=== PATIENT | female | born 1955 | race Caucasian/White ===

== ENCOUNTER 2017-06-29 08:37 | Day surgery (SDC) | payer MEDICARE, SELFPAY ==
[~2017-06-29 08:37] MED LIST: Lidocaine 1% with EPINEPHrine 1:100,000 50 ML MDV ONE; Midazolam 1 MG/ML 2 ML SDV ONE; Propofol 200 MG/20 ML SDV ONE; Sodium Chloride 0.9% 10 ML ONE; Sodium Tetradecyl Sulfate 1% 20 MG/2 ML SDV ONE; fentaNYL 100 MCG/2 ML SDV ONE
[2017-06-29] MEDS ORDERED: Sodium Chloride 0.9% 1,000 ML IV SCH (09:00)
[2017-06-29] MEDS: Lidocaine 1% w/EPINEPHrine 50 ML, Sodium Bicarbonate 5 MEQ in Sodium Chloride 0.9% 950 ML INJECT SCH (09:58)
[2017-06-29] MEDS ORDERED: Sodium Chloride 0.9% 10 ML SDV ONE (10:08)
--- NOTE | 2017-06-29 10:58 | US ---
RFA Guidance-No Charge INDICATION: RFA [id number] FINDINGS: Ultrasound guidance provided.
[2017-06-29 12:55] VITALS: BP 122/64
--- NOTE | 2017-06-29 13:05 | OR ---
DATE OF PROCEDURE: 06/29/2017 PROCEDURE: 1. Radiofrequency ablation of the left greater saphenous vein. 2. Radiofrequency ablation of the right greater saphenous vein. 3. Sclerotherapy left leg, multiple. 4. Sclerotherapy right leg, multiple. 5. Compression wrapping, left leg ([id number]). 6. Compression wrapping, right leg ([id number]). COMPLICATIONS: None. SAP GRC SECURITY: None. ANESTHETIC: MAC. PREOPERATIVE DIAGNOSIS: Venous/varicose veins with inflammation and pain. POSTOPERATIVE DIAGNOSIS: Venous/varicose veins with inflammation and pain. PROCEDURE IN DETAIL: The patient was placed in supine position. The left GSV was identified first. This could be accessed at the bulky level of the ankle, but due to tortuosity, this could only be advanced approximately the mid calf. Short-segment RFA probe was then used. This was accessed in a standard fashion using a 21-gauge needle, then exchanged for a 35,000 wire, then exchanged for a 7-[place] sheath. The probe was introduced and tumescent fluid was injected in 1 cm jacket around this and verified a second and third time. Direct even pressure was held as the probe was deployed times a single round. The sheath and device were then removed and Dermabond was applied. The right leg was dressed in the same manner, same fashion, same technique, and the same sequence using the same equipment. This was also due to tortuosity along the access level of the ankle to mid calf. Sheath and device were then held and Dermabond was applied to both. The sclerotherapy was then performed of left and right legs using 0.33% sodium tetradecyl. There was 4 on the right and 4 on the left. This was drawn back to ensure intravascular injection only. No more than 2 mL injected in one location. Two-stage compression CoFlex wrapping was then applied in the left and right legs in a standard [id number] fashion. Compression layer followed by Co-flexing layer. The patient tolerated the procedure well. Leland Rogers MD /[id number]
== END 2017-06-29 12:05 | disposition home or self-care (01) ==
LOC: JP.SDS 08:37
PROVIDERS: ATTEND Surgery
DX: I83.811 Varicose veins of right lower extremity with pain (principal); I83.11 Varicose veins of right lower extremity with inflammation; I83.12 Varicose veins of left lower extremity with inflammation; I25.10 Atherosclerotic heart disease of native coronary artery without angina pectoris; Z95.810 Presence of automatic (implantable) cardiac defibrillator; J44.9 Chronic obstructive pulmonary disease, unspecified; G47.30 Sleep apnea, unspecified; E66.9 Obesity, unspecified; K21.9 Gastro-esophageal reflux disease without esophagitis; F41.9 Anxiety disorder, unspecified; F32.9 Major depressive disorder, single episode, unspecified; E53.8 Deficiency of other specified B group vitamins; Z98.84 Bariatric surgery status; Z90.49 Acquired absence of other specified parts of digestive tract; Z98.890 Other specified postprocedural states; Z68.30 Body mass index [BMI] 30.0-30.9, adult; Z88.8 Allergy status to other drugs, medicaments and biological substances; Z91.09 Other allergy status, other than to drugs and biological substances
CPT/HCPCS: 29581; 36471; 36475; C1888; J1642; J2250; J2704; J3010; J7040; J7050; J3490

== ENCOUNTER 2018-10-23 13:40 | Emergency (ER) | payer MEDICAID, MEDICARE ==
[2018-10-23 14:03] VITALS: BP 120/57
--- NOTE | 2018-10-23 14:20 | EDM.PDOC ---
ED HPI GENERAL MEDICAL PROBLEM - General Chief Complaint: Neck Problem Stated Complaint: NUMBNESS ON LEFT SIDE OF HEAD Time Seen by Provider: 10/23/18 14:12 Source of Information: Reports: Patient History Limitations: Reports: No Limitations - History of Present Illness INITIAL COMMENTS - FREE TEXT/NARRATIVE: 63-year-old female who has developed some numbness and tingling sensation on the posterior aspect of the left neck, as the day has gone on it has expanded up onto the parietal area of the scalp. When she was feeling the area she noticed a lump on the upper posterior left neck that has gotten somewhat tender as the day has gone on. She otherwise feels fine, no neurologic deficits or changes. She called the clinic to be seen and they sent her to the emergency room. Onset: Gradual Duration: Day(s): (Last 12-24 hours) Associated Symptoms: Reports: No Other Symptoms - Related Data Allergies Allergy/AdvReac Type Severity Reaction Status Date / Time melatonin Allergy Unknown Tachycardia Verified 06/29/17 09:09 adhesive tape Allergy Rash Verified 06/29/17 09:09 hydromorphone [From Dilaudid] Allergy Itching Verified 06/29/17 09:09 oxycodone [From Tylox] Allergy Itching Verified 06/29/17 09:09 pregabalin [From Lyrica] Allergy Seizure Verified 06/29/17 09:09 pneumococcal vaccine AdvReac Unknown Nausea and Verified 06/29/17 09:09 [Pneumococcal Vaccine] Vomiting fentanyl AdvReac Itching Verified 06/29/17 09:09 hydromorphone HCl AdvReac Itching Verified 06/29/17 09:09 [From Dilaudid] Home Meds: Home Meds Budesonide/Formoterol [Symbicort 160-4.5 MCG] 2 puff INH BID PRN 07/15/13 [ History] Hydrocortisone [Hydrocortisone 1% Crm] 1 lotion TOP BID PRN 07/15/13 [History] Vitamin B Complex [B Complex] 1 tab PO DAILY 07/15/13 [History] Nitroglycerin [Nitrostat] 0.4 mg SL ASDIRECTED PRN 01/12/14 [History] Metoprolol Tartrate [Lopressor] 25 mg PO BID 02/10/14 [History] Polyethylene Glycol 3350 [MiraLAX] 1 dose PO [id number] PRN 09/15/14 [History] lamoTRIgine [Lamotrigine] 200 mg PO ACBREAKFAST 02/25/16 [History] Calcium Citrate/Vitamin D3 [Calcium Citrate +Vit D3 Tablet] 1 tab PO DAILY 04/29 [History] Cholecalciferol (Vitamin D3) [D3-2000] 10,000 units PO DAILY 04/29/16 [History] Cyanocobalamin/Folic Acid [B-12 1,000 Mcg Sub Tablet] 1 tab PO DAILY 04/29/16 [ History] Multivitamin with Minerals [Multiple Vitamin] 1 tab PO DAILY 04/29/16 [History] atorvaSTATin [Lipitor] 40 mg PO DAILY 04/29/16 [History] Ibuprofen 400 mg PO ASDIRECTED 09/12/16 [History] Pramipexole Di-HCl [Mirapex] 1 mg PO QPM 09/12/16 [History] levETIRAcetam [Keppra] 750 mg PO BID 09/12/16 [History] PARoxetine [Paxil] 20 mg PO DAILY 10/05/16 [History] Albuterol [IJD: Ventolin HFA] 2 puff INH Q4HR PRN 06/27/17 [History] Naproxen 500 mg PO BID PRN 06/27/17 [History] tiZANidine [Zanaflex] 4 mg PO BEDTIME 06/27/17 [History] Acarbose 25 mg PO TID 10/23/18 [History] Acetaminophen/HYDROcodone [[place] 325-5 MG] 1 tab PO QID PRN 10/23/18 [History] Gabapentin [Neurontin] 600 mg PO BID 10/23/18 [History] Linaclotide [Linzess] 145 mg PO DAILY 10/23/18 [History] Liraglutide [Victoza] 0.6 mg PO DAILY 10/23/18 [History] Magnesium Oxide 400 mg PO DAILY 10/23/18 [History] Potassium Chloride 10 meq PO BID 10/23/18 [History] Torsemide [Demadex] 20 mg PO BID 10/23/18 [History] Past Medical History HEENT History: Reports: Allergic Rhinitis, Cataract, Impaired Vision, Otitis Media Cardiovascular History: Reports: Automatic Implantable Cardioverter Defibrillators, Blood Clots/VTE/DVT, Bypass, CAD, Heart Failure, Heart Murmur, [place], Pacemaker, Prior Cardiac Arrest, Stents Respiratory History: Reports: Asthma, Bronchitis, Recurrent, COPD, Sleep Apnea Gastrointestinal History: Reports: Bowel Obstruction, Chronic Constipation, Colon Polyp, GERD, Hemorrhoids, Hiatal Hernia Genitourinary History: Reports: UTI, 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: Musculoskeletal History: Reports: Arthritis, Back Pain, Chronic, Fracture, RA Neurological History: Reports: CVA, Seizure Psychiatric History: Reports: Anxiety, Depression, Mood Swings Endocrine/Metabolic History: Reports: Obesity/BMI 30+, Osteopenia, Other (See Below) Other Endocrine/Metabolic History: hypoglycemia Hematologic History: Reports: B12 Deficiency, Blood Transfusion(s), Folic Acid Dermatologic History: Reports: Eczema - Infectious Disease History Infectious Disease History: Reports: Chicken Pox, Measles, Mumps - Past Surgical History HEENT Surgical History: Reports: Naso-Sinus Surgery, Tonsillectomy Cardiovascular Surgical History: Reports: Coronary Artery Bypass, Coronary Artery Stent, Pacer Respiratory Surgical History: Reports: None GI Surgical History: Reports: Appendectomy, Bariatric Procedure, Cholecystectomy , Colonoscopy, EGD, Gabriel Fundoplication, Small Bowel Female Surgical History: Reports: Section Endocrine Surgical History: Reports: None Neurological Surgical History: Reports: Lumbar Spine Musculoskeletal Surgical History: Reports: Carpal Tunnel, Other (See Below) Other Musculoskeletal Surgeries/Procedures:: Elbow surg Social & Family History - Tobacco Use Smoking Status *Q: Light Tobacco Smoker Years of Tobacco use: 40 Packs/Tins Daily: 0.1 - Caffeine Use Caffeine Use: Reports: Soda - Recreational Drug Use Recreational Drug Use: No ED ROS GENERAL - Review of Systems Review Of Systems: See Below Constitutional: Denies: Fever, Chills HEENT: Reports: No Symptoms Respiratory: Denies: Shortness of Breath, Cough Cardiovascular: Denies: Chest Pain GI/Abdominal: Denies: Nausea, Vomiting Skin: Denies: Bruising Neurological: Reports: Paresthesia (Left scalp and left posterior neck). Denies : Headache Psychiatric: Reports: No Symptoms Free Text/Narrative/Comment: Claims she is "hypoglycemic". ED EXAM, GENERAL - Physical Exam Exam: See Below Exam Limited By: No Limitations General Appearance: Alert, No Apparent Distress Eye Exam: Bilateral Eye: EOMI, Normal Inspection Head: Atraumatic, Other (Patient has a 2 x 2 raised somewhat erythematous slightly fluctuant subcutaneous mass or cyst above the hairline on the scalp on the left which is tender to palpation) Neck: Supple Respiratory/Chest: No Respiratory Distress Neurological: Alert, Oriented, No Motor/Sensory Deficits Course - Vital Signs Last Recorded V/S: Last Vital Signs Temp 95.1 F L 10/23/18 14:06 Pulse 61 10/23/18 14:06 Resp 16 10/23/18 14:06 BP 120/57 L 10/23/18 14:06 Pulse Ox 98 10/23/18 14:06 - Re-Assessments/Exams Free Text/Narrative Re-Assessment/Exam: 10/23/18 14:24 Patient has developed a sebaceous cyst which apparently has become inflamed over the past day, likely irritating occipital nerve. It's not quite large enough to incise at this point, she'll be placed on Augmentin twice daily for the next 6 days, warm compresses, and recheck in 3 days if not improving or anytime sooner if worsening despite medication. Departure - Departure Time of Disposition: 14:34 Disposition: Home, Self-Care 01 Condition: Good Clinical Impression: Infected sebaceous cyst of skin - Discharge Information Instructions: Cellulitis, Adult, [id number] Referrals: PCP,None [Primary Care Provider] - Forms: ED Department Discharge Care Plan Goals: Take Augmentin twice daily for 6 days with food as prescribed, occasional warm compresses to the area may help. Return anytime if worsening despite treatment, or consider rechecking on Monday if not improving satisfactorily. Do not be alarmed if the spot drains as it heals.
== END 2018-10-23 14:34 | disposition home or self-care (01) ==
LOC: JP.ED 13:40
DX: L72.3 Sebaceous cyst (principal); F17.210 Nicotine dependence, cigarettes, uncomplicated; I50.9 Heart failure, unspecified; F41.9 Anxiety disorder, unspecified; F32.9 Major depressive disorder, single episode, unspecified; Z86.73 Personal history of transient ischemic attack (TIA), and cerebral infarction without residual deficits; Z79.899 Other long term (current) drug therapy; Z91.09 Other allergy status, other than to drugs and biological substances; Z88.6 Allergy status to analgesic agent; Z88.7 Allergy status to serum and vaccine
CPT/HCPCS: 99283

== ENCOUNTER 2019-02-05 12:43 | Emergency (ER) | payer MEDICARE ==
--- NOTE | 2019-02-05 13:25 | EDM.PDOC ---
ED HPI GENERAL MEDICAL PROBLEM - General Chief Complaint: Neuro Symptoms/Deficits Stated Complaint: NUMBNESS IN LEFT HAND AND ARM Time Seen by Provider: 02/05/19 13:10 Source of Information: Reports: Patient, Old Records History Limitations: Reports: No Limitations - History of Present Illness INITIAL COMMENTS - FREE TEXT/NARRATIVE: 63 yo female with a pacemaker and a pHx of CAD/FL and CVA and L ulnar nerve entrapment presents with R lateral hand numbness since this morning. Sx's go from her 5th finger to her elbow. No weakness in that hand. Onset: Today Onset Date: 02/05/19 Onset Time: 07:00 Duration: Hour(s):, Constant Location: Reports: Upper Extremity, Right Quality: Reports: Other (numbness) Severity: Moderate Improves with: Reports: None Worsens with: Reports: None Context: Reports: Other (see HPI) Associated Symptoms: Reports: No Other Symptoms Treatments PLOW HOLDER: Reports: Other (see below) (none) Right Arm Pain Score (Numeric/FACES): 2 - Related Data Allergies Allergy/AdvReac Type Severity Reaction Status Date / Time melatonin Allergy Unknown Tachycardia Verified 02/05/19 13:28 adhesive tape Allergy Rash Verified 02/05/19 13:28 hydromorphone [From Dilaudid] Allergy Itching Verified 02/05/19 13:28 oxycodone [From Tylox] Allergy Itching Verified 02/05/19 13:28 pregabalin [From Lyrica] Allergy Seizure Verified 02/05/19 13:28 pneumococcal vaccine AdvReac Unknown Nausea and Verified 02/05/19 13:28 [Pneumococcal Vaccine] Vomiting fentanyl AdvReac Itching Verified 02/05/19 13:28 hydromorphone HCl AdvReac Itching Verified 02/05/19 13:28 [From Dilaudid] Home Meds: Home Meds Budesonide/Formoterol [Symbicort 160-4.5 MCG] 2 puff INH BID PRN 07/15/13 [ History] Hydrocortisone [Hydrocortisone 1% Crm] 1 lotion TOP BID PRN 07/15/13 [History] Vitamin B Complex [B Complex] 1 tab PO DAILY 07/15/13 [History] Nitroglycerin [Nitrostat] 0.4 mg SL ASDIRECTED PRN 01/12/14 [History] Metoprolol Tartrate [Lopressor] 25 mg PO BID 02/10/14 [History] Polyethylene Glycol 3350 [MiraLAX] 1 dose PO [id number] PRN 09/15/14 [History] lamoTRIgine [Lamotrigine] 200 mg PO ACBREAKFAST 02/25/16 [History] Calcium Citrate/Vitamin D3 [Calcium Citrate +Vit D3 Tablet] 1 tab PO DAILY 04/29 [History] Cholecalciferol (Vitamin D3) [D3-2000] 10,000 units PO DAILY 04/29/16 [History] Cyanocobalamin/Folic Acid [B-12 1,000 Mcg Sub Tablet] 1 tab PO DAILY 04/29/16 [ History] Multivitamin with Minerals [Multiple Vitamin] 1 tab PO DAILY 04/29/16 [History] atorvaSTATin [Lipitor] 40 mg PO DAILY 04/29/16 [History] Ibuprofen 400 mg PO ASDIRECTED 09/12/16 [History] Pramipexole Di-HCl [Mirapex] 1 mg PO QPM 09/12/16 [History] levETIRAcetam [Keppra] 750 mg PO BID 09/12/16 [History] PARoxetine [Paxil] 20 mg PO DAILY 10/05/16 [History] Albuterol [IJD: Ventolin HFA] 2 puff INH Q4HR PRN 06/27/17 [History] Naproxen 500 mg PO BID PRN 06/27/17 [History] tiZANidine [Zanaflex] 4 mg PO BEDTIME 06/27/17 [History] Acarbose 25 mg PO TID 10/23/18 [History] Acetaminophen/HYDROcodone [[place] 325-5 MG] 1 tab PO QID PRN 10/23/18 [History] Gabapentin [Neurontin] 600 mg PO BID 10/23/18 [History] Linaclotide [Linzess] 145 mg PO DAILY 10/23/18 [History] Liraglutide [Victoza] 0.6 mg PO DAILY 10/23/18 [History] Magnesium Oxide 400 mg PO DAILY 10/23/18 [History] Potassium Chloride 10 meq PO BID 10/23/18 [History] Torsemide [Demadex] 20 mg PO BID 10/23/18 [History] Pramipexole [Mirapex] 0.5 mg PO BEDTIME 02/05/19 [History] Past Medical History HEENT History: Reports: Allergic Rhinitis, Cataract, Impaired Vision, Otitis Media Cardiovascular History: Reports: Automatic Implantable Cardioverter Defibrillators, Blood Clots/VTE/DVT, Bypass, CAD, Heart Failure, Heart Murmur, [place], Pacemaker, Prior Cardiac Arrest, Stents Respiratory History: Reports: Asthma, Bronchitis, Recurrent, COPD, Sleep Apnea Gastrointestinal History: Reports: Bowel Obstruction, Chronic Constipation, Colon Polyp, GERD, Hemorrhoids, Hiatal Hernia Genitourinary History: Reports: UTI, 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: Musculoskeletal History: Reports: Arthritis, Back Pain, Chronic, Fracture, RA Neurological History: Reports: CVA, Seizure Psychiatric History: Reports: Anxiety, Depression, Mood Swings Endocrine/Metabolic History: Reports: Obesity/BMI 30+, Osteopenia, Other (See Below) Other Endocrine/Metabolic History: hypoglycemia Hematologic History: Reports: B12 Deficiency, Blood Transfusion(s), Folic Acid Dermatologic History: Reports: Eczema - Infectious Disease History Infectious Disease History: Reports: Chicken Pox, Measles, Mumps - Past Surgical History HEENT Surgical History: Reports: Naso-Sinus Surgery, Tonsillectomy Cardiovascular Surgical History: Reports: Coronary Artery Bypass, Coronary Artery Stent, Pacer Respiratory Surgical History: Reports: None GI Surgical History: Reports: Appendectomy, Bariatric Procedure, Cholecystectomy , Colonoscopy, EGD, Gabriel Fundoplication, Small Bowel Female Surgical History: Reports: Section Endocrine Surgical History: Reports: None Neurological Surgical History: Reports: Lumbar Spine Musculoskeletal Surgical History: Reports: Carpal Tunnel, Other (See Below) Other Musculoskeletal Surgeries/Procedures:: Elbow surg Social & Family History - Caffeine Use Caffeine Use: Reports: Soda ED ROS GENERAL - Review of Systems Review Of Systems: See Below Constitutional: Reports: No Symptoms HEENT: Reports: No Symptoms Respiratory: Reports: No Symptoms Cardiovascular: Reports: No Symptoms Endocrine: Reports: No Symptoms GI/Abdominal: Reports: No Symptoms : Reports: No Symptoms Musculoskeletal: Reports: No Symptoms Skin: Reports: No Symptoms Neurological: Reports: Numbness (R lateral hand and forearm). Denies: Weakness , Change in Speech, Gait Disturbance Psychiatric: Reports: No Symptoms ED EXAM, NEURO - Physical Exam Exam: See Below Exam Limited By: No Limitations General Appearance: Alert, WD/WN, No Apparent Distress Eye Exam: Bilateral Eye: Normal Inspection Ears: Normal External Exam, Normal Canal, Hearing Grossly Normal, Normal TMs Nose: Normal Inspection, No Blood Throat/Mouth: Normal Inspection, Normal Lips, Normal Oropharynx, Normal Voice, No Airway Compromise Head Exam: Atraumatic, Normocephalic Neck: Normal Inspection Respiratory/Chest: No Respiratory Distress, Lungs Clear, Normal Breath Sounds, No Accessory Muscle Use Cardiovascular: Regular Rate, Rhythm, No Edema GI/Abdominal: Normal Bowel Sounds, Soft, Non-Tender, No Distention Neurological: Alert, Normal Mood/Affect, Normal Dorsiflexion, CN II-XII Intact, Normal Plantar Flexion, Oriented x 3, Other (subjective numbness limited to the ulnar nerve distribution RUE.) DTR: 1+: Bicep (R), Bicep (L), Tricep (R), Tricep (L), Patella (R), Patella (L) , Achilles (R), Achilles (L) Back Exam: Normal Inspection Extremities: Normal Inspection, Normal Range of Motion, Non-Tender, No Pedal Edema Psychiatric: Normal Affect, Normal Mood Skin Exam: Warm, Dry, Intact, Normal Color, No Rash Course - Vital Signs Last Recorded V/S: Last Vital Signs Temp 36.1 C 02/05/19 13:35 Pulse 85 02/05/19 13:35 Resp 15 02/05/19 13:35 BP 105/45 L 02/05/19 13:35 Pulse Ox 94 L 02/05/19 13:35 - Orders/Labs/Meds Labs: Laboratory Tests 02/05/19 02/05/19 Range/Units 13:19 13:19 WBC 6.5 (4.5-11.0) K/uL RBC 4.28 (3.30-5.50) M/uL Hgb 13.1 D (12.0-15.0) g/dL Hct 40.0 (36.0-48.0) % MCV 94 (80-98) fL MCH 31 (27-31) pg MCHC 33 (32-36) % Plt Count 124 L (150-400) K/uL Sodium 140 (140-148) mmol/L Potassium 4.0 (3.6-5.2) mmol/L Chloride 102 (100-108) mmol/L Carbon Dioxide 31 (21-32) mmol/L Anion Gap 7.2 (5.0-14.0) mmol/L BUN 9 (7-18) mg/dL Creatinine 0.7 (0.6-1.0) mg/dL Est Cr Clr Drug Dosing 63.69 mL/min Estimated GFR (MDRD) > 60 (>60) Glucose 90 (74-106) mg/dL Calcium 9.4 D (8.5-10.1) mg/dL Troponin I < 0.017 (0.000-0.056) ng/mL - Radiology Interpretation Free Text/Narrative:: Head CT scan without contrast-neg Departure - Departure Time of Disposition: 14:54 Disposition: Home, Self-Care 01 Condition: Fair Clinical Impression: Numbness of upper extremity Ulnar nerve entrapment Qualifiers: Laterality: right Qualified Code(s): G56.21 - Lesion of ulnar nerve, right upper limb - Discharge Information *PRESCRIPTION DRUG MONITORING PROGRAM REVIEWED*: No *COPY OF PRESCRIPTION DRUG MONITORING REPORT IN PATIENT [place]: No Referrals: Rodo Jackson NP [Primary Care Provider] - Forms: ED Department Discharge Additional Instructions: See your doctor for EMG testing or referral. Return here as needed.
--- NOTE | 2019-02-05 14:46 | CRLCT ---
INDICATION: Right lateral hand numbness TECHNIQUE: CT head without contrast. COMPARISON: 08/01/2018 FINDINGS: CSF spaces: Within normal limits for age. Brain parenchyma: The senior-white differentiation is normal. No sign of mass, hemorrhage, or midline shift. Skull base and calvarium: The visualized paranasal sinuses and mastoid air cells demonstrate no acute or significant findings. The visualized orbits are grossly unremarkable. No skull fractures. IMPRESSION: Unremarkable noncontrast head CT. Dictated by Darrius Orellana MD @ 02/05/2019 2:43:21 PM Please note that all CT scans at this facility use dose modulation, iterative reconstruction, and/or weight-based dosing when appropriate to reduce radiation dose to as low as reasonably achievable. Dictated by: Darrius Orlelana MD @ 02/05/2019 14:43:27 (Electronically Signed)
[2019-02-05 15:08] VITALS: BP 112/50
== END 2019-02-05 15:00 | disposition home or self-care (01) ==
LOC: JP.ED 12:43
DX: G56.21 Lesion of ulnar nerve, right upper limb (principal); I50.9 Heart failure, unspecified; I25.10 Atherosclerotic heart disease of native coronary artery without angina pectoris; I25.2 Old myocardial infarction; Z86.73 Personal history of transient ischemic attack (TIA), and cerebral infarction without residual deficits; M19.90 Unspecified osteoarthritis, unspecified site; E66.9 Obesity, unspecified; Z95.1 Presence of aortocoronary bypass graft; Z98.890 Other specified postprocedural states; Z98.84 Bariatric surgery status; Z88.7 Allergy status to serum and vaccine; Z88.5 Allergy status to narcotic agent; Z91.09 Other allergy status, other than to drugs and biological substances; Z95.5 Presence of coronary angioplasty implant and graft; Z95.0 Presence of cardiac pacemaker
CPT/HCPCS: 36415; 70450; 80048; 84484; 85027; 99284-25

== ENCOUNTER 2020-06-11 10:53 | Emergency (ER) | payer MEDICARE ==
[2020-06-11 11:26] VITALS: BP 123/68; PULSE 64
[2020-06-11] MEDS ORDERED: Ketorolac 60 MG/2 ML SDV IM ONE (12:00)
--- NOTE | 2020-06-11 12:07 | EDM.PDOC ---
<Laquita Amaral M - Last Filed: 06/11/20 12:15> ED HPI GENERAL MEDICAL PROBLEM - General Chief Complaint: Neck Problem Stated Complaint: POSSIBLE GRAND MALL SIEZURE Time Seen by Provider: 06/11/20 11:36 Source of Information: Reports: Patient, RN, RN Notes Reviewed History Limitations: Reports: No Limitations - History of Present Illness INITIAL COMMENTS - FREE TEXT/NARRATIVE: Pt here post grand mal seizure on Monday evening. Pt indicates it was unwitnessed. First seizure in 3 years. Pt was sitting in recliner with legs elevated and then was disoriented when she realized she may have had a seizure. approximately 15 minutes later, the pt indicates the pain in her posterior neck was hurting. Pt took hydrocodone on three different occasion yesterday with no relief. Pt purchased a C collar and continues to c/o pain even with talking. Strength 5/5 in all extremities. Limited ROM in neck and tops of shoulders. Pt winces in pain without even touching the neck area. The pt did not loose continence with the seizure. Onset Date: 06/09/20 Duration: Constant, Getting Worse Location: Reports: Neck Quality: Reports: Ache Severity: Moderate Improves with: Reports: None Associated Symptoms: Reports: No Other Symptoms - Related Data Allergies Allergy/AdvReac Type Severity Reaction Status Date / Time melatonin Allergy Unknown Tachycardia Verified 02/05/19 13:28 adhesive tape Allergy Rash Verified 02/05/19 13:28 hydromorphone [From Dilaudid] Allergy Itching Verified 02/05/19 13:28 oxycodone [From Tylox] Allergy Itching Verified 02/05/19 13:28 pregabalin [From Lyrica] Allergy Seizure Verified 02/05/19 13:28 pneumococcal vaccine AdvReac Unknown Nausea and Verified 02/05/19 13:28 [Pneumococcal Vaccine] Vomiting fentanyl AdvReac Itching Verified 02/05/19 13:28 hydromorphone HCl AdvReac Itching Verified 02/05/19 13:28 [From Dilaudid] Home Meds: Home Meds Budesonide/Formoterol [Symbicort 160-4.5 MCG] 2 puff INH BID PRN 07/15/13 [History] Hydrocortisone [Hydrocortisone 1% Crm] 1 lotion TOP BID PRN 07/15/13 [History] Vitamin B Complex [B Complex] 1 tab PO DAILY 07/15/13 [History] Nitroglycerin [Nitrostat] 0.4 mg SL ASDIRECTED PRN 01/12/14 [History] Metoprolol Tartrate [Lopressor] 25 mg PO BID 02/10/14 [History] polyethylene glycoL 3350 [MiraLAX] 1 dose PO [id number] PRN 09/15/14 [History] lamoTRIgine [Lamotrigine] 200 mg PO ACBREAKFAST 02/25/16 [History] Calcium Citrate/Vitamin D3 [Calcium Citrate +Vit D3 Tablet] 1 tab PO DAILY 04/29/16 [History] Cholecalciferol (Vitamin D3) [D3-2000] 10,000 units PO DAILY 04/29/16 [History] Cyanocobalamin/Folic Acid [B-12 1,000 Mcg Sub Tablet] 1 tab PO DAILY 04/29/16 [History] Multivitamin with Minerals [Multiple Vitamin] 1 tab PO DAILY 04/29/16 [History] atorvaSTATin [Lipitor] 40 mg PO DAILY 04/29/16 [History] Ibuprofen 400 mg PO ASDIRECTED 09/12/16 [History] Pramipexole Di-HCl [Mirapex] 1 mg PO QPM 09/12/16 [History] levETIRAcetam [Keppra] 750 mg PO BID 09/12/16 [History] PARoxetine [Paxil] 20 mg PO DAILY 10/05/16 [History] Albuterol [IJD: Ventolin HFA] 2 puff INH Q4HR PRN 06/27/17 [History] Naproxen 500 mg PO BID PRN 06/27/17 [History] tiZANidine [Zanaflex] 4 mg PO BEDTIME 06/27/17 [History] Acarbose 25 mg PO TID 10/23/18 [History] Acetaminophen/HYDROcodone [[place] 325-5 MG] 1 tab PO QID PRN 10/23/18 [History] Gabapentin [Neurontin] 600 mg PO BID 10/23/18 [History] Linaclotide [Linzess] 145 mg PO DAILY 10/23/18 [History] Liraglutide [Victoza] 0.6 mg PO DAILY 10/23/18 [History] Magnesium Oxide 400 mg PO DAILY 10/23/18 [History] Potassium Chloride 10 meq PO BID 10/23/18 [History] Torsemide [Demadex] 20 mg PO BID 10/23/18 [History] Pramipexole [Mirapex] 0.5 mg PO BEDTIME 02/05/19 [History] Past Medical History HEENT History: Reports: Allergic Rhinitis, Cataract, Impaired Vision, Otitis Media Cardiovascular History: Reports: Automatic Implantable Cardioverter Defibrillators, Blood Clots/VTE/DVT, Bypass, CAD, Heart Failure, Heart Murmur, [place], Pacemaker, Prior Cardiac Arrest, Stents Respiratory History: Reports: Asthma, Bronchitis, Recurrent, COPD, Sleep Apnea Gastrointestinal History: Reports: Bowel Obstruction, Chronic Constipation, Colon Polyp, GERD, Hemorrhoids, Hiatal Hernia Genitourinary History: Reports: UTI, Recurrent 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: Musculoskeletal History: Reports: Arthritis, Back Pain, Chronic, Fracture, RA Other Musculoskeletal History: back surgery with paulette along spine Neurological History: Reports: CVA, Seizure Psychiatric History: Reports: Anxiety, Depression, Mood Swings Endocrine/Metabolic History: Reports: Obesity/BMI 30+, Osteopenia, Other (See Below) Other Endocrine/Metabolic History: hypoglycemia Hematologic History: Reports: B12 Deficiency, Blood Transfusion(s), Folic Acid Dermatologic History: Reports: Eczema - Infectious Disease History Infectious Disease History: Reports: Chicken Pox, Measles, Mumps - Past Surgical History HEENT Surgical History: Reports: Naso-Sinus Surgery, Tonsillectomy Cardiovascular Surgical History: Reports: Coronary Artery Bypass, Coronary Artery Stent, Pacer Respiratory Surgical History: Reports: None GI Surgical History: Reports: Appendectomy, Bariatric Procedure, Cholecystectomy, Colonoscopy, EGD, Gabriel Fundoplication, Small Bowel Female Surgical History: Reports: Section Endocrine Surgical History: Reports: None Neurological Surgical History: Reports: Lumbar Spine Musculoskeletal Surgical History: Reports: Carpal Tunnel, Other (See Below) Other Musculoskeletal Surgeries/Procedures:: Elbow surg Social & Family History - Caffeine Use Caffeine Use: Reports: Soda - Recreational Drug Use Recreational Drug Use: No ED ROS GENERAL - Review of Systems Review Of Systems: See Below Constitutional: Reports: No Symptoms HEENT: Reports: Other (Neck pain) Respiratory: Reports: No Symptoms Cardiovascular: Reports: No Symptoms Endocrine: Reports: No Symptoms GI/Abdominal: Reports: No Symptoms : Reports: No Symptoms Musculoskeletal: Reports: Neck Pain (Post gran mal seizure) Skin: Reports: No Symptoms Neurological: Reports: No Symptoms Psychiatric: Reports: No Symptoms Hematologic/Lymphatic: Reports: No Symptoms Immunologic: Reports: No Symptoms ED EXAM, UPPER BACK/NECK PAIN - Physical Exam Exam: See Below Exam Limited By: No Limitations General Appearance: Alert, WD/WN, Mild Distress Eye Exam: Bilateral Eye: Normal Inspection, PERRL Head Exam: Normocephalic Neck Exam: Limited Range of Motion, Painful Range of Motion, Stiff Neck, Tenderness Cardiovascular/Respiratory: Regular Rate, Rhythm (Female) Exam: Deferred Rectal (Female) Exam: Deferred Back Exam: Normal Inspection Extremities: Normal Range of Motion Neurologic: Alert, Normal Mood/Affect Psychiatric: Normal Affect Skin Exam: Normal Color, Warm/Dry Departure - Departure Time of Disposition: 12:15 Disposition: Left Without Being Seen 07 Condition: Good Clinical Impression: Neck muscle strain Qualifiers: Encounter type: initial encounter Qualified Code(s): S16.1XXA - Strain of muscle, fascia and tendon at neck level, initial encounter - Discharge Information *PRESCRIPTION DRUG MONITORING PROGRAM REVIEWED*: Not Applicable *COPY OF PRESCRIPTION DRUG MONITORING REPORT IN PATIENT CHIRAG: Not Applicable Instructions: Cervical Sprain, [id number], Pain Medicine Instructions, [id number] Referrals: Rodo Jackson NP [Primary Care Provider] - Forms: ED Department Discharge Care Plan Goals: Please take your Toradol as prescribed. DO NOT TAKE ANY IBUPROFEN, MOTRIN, OR ALEVE WHILE TAKING TORADOL. You may take Hydrocodone that you have at home with the Toradol. You may trry ice and heat to help with pain relief. If the condition worsens pleas come back to the ER or follow up with your provider. Sepsis Event Note (ED) - Evaluation Sepsis Screening Result: No Definite Risk - Problem List Review Problem List Initiated/Reviewed/Updated: Yes - Assessment/Plan Plan: Please take your Toradol as prescribed. DO NOT TAKE ANY IBUPROFEN, MOTRIN, OR ALEVE WHILE TAKING TORADOL. You may take Hydrocodone that you have at home with the Toradol. You may trry ice and heat to help with pain relief. If the condition worsens pleas come back to the ER or follow up with your provider. <Tom Herrera - Last Filed: 06/11/20 12:54> Course - Vital Signs Last Recorded V/S: Last Vital Signs Temp 98.2 F 06/11/20 11:31 Pulse 64 06/11/20 11:31 Resp 16 06/11/20 11:31 BP 123/68 06/11/20 11:31 Pulse Ox 97 06/11/20 11:31 - Orders/Labs/Meds Meds: Medications Discontinued Medications Generic Name Dose Route Start Last Admin Trade Name Tom PRN Reason Stop Dose Admin Ketorolac Tromethamine 60 mg 06/11/20 12:00 06/11/20 12:09 Toradol IM 06/11/20 12:01 60 mg ONETIME ONE Administration - Re-Assessments/Exams Free Text/Narrative Re-Assessment/Exam: 06/11/20 12:27 20 notes after the Toradol injection, patient had just a slight amount of improvement. She will be discharged with 10 additional doses to take 3 times a day and she can continue her hydrocodone for extra pain control. She is also going to consider increasing her Zanaflex to every 4-6 hours instead of once daily. Recheck on Monday or Monday if not improving, physical therapy or further evaluation may be necessary. Departure - Departure Time of Disposition: 12:36 Sepsis Event Note (ED) - Focused Exam Vital Signs: Vital Signs Temp Pulse Resp BP Pulse Ox 06/11/20 11:31 98.2 F 64 16 123/68 97 06/11/20 11:25 98.2 F 64 16 123/68 97
== END 2020-06-11 12:36 | disposition home or self-care (01) ==
LOC: JP.ED 10:53
DX: S16.1XXA Strain of muscle, fascia and tendon at neck level, initial encounter (principal); G40.409 Other generalized epilepsy and epileptic syndromes, not intractable, without status epilepticus; I50.9 Heart failure, unspecified; I25.10 Atherosclerotic heart disease of native coronary artery without angina pectoris; I25.2 Old myocardial infarction; J44.9 Chronic obstructive pulmonary disease, unspecified; E66.9 Obesity, unspecified; F41.9 Anxiety disorder, unspecified; F32.9 Major depressive disorder, single episode, unspecified; K21.9 Gastro-esophageal reflux disease without esophagitis; Z88.8 Allergy status to other drugs, medicaments and biological substances; Z91.09 Other allergy status, other than to drugs and biological substances; Z88.5 Allergy status to narcotic agent; Z88.7 Allergy status to serum and vaccine; Z88.4 Allergy status to anesthetic agent; Z95.5 Presence of coronary angioplasty implant and graft; Z90.49 Acquired absence of other specified parts of digestive tract; Z86.73 Personal history of transient ischemic attack (TIA), and cerebral infarction without residual deficits; Z79.899 Other long term (current) drug therapy; X58.XXXA Exposure to other specified factors, initial encounter
CPT/HCPCS: 96372; 99283; J1885

== ENCOUNTER 2020-11-27 16:09 | Emergency (ER) | payer MEDICARE ==
--- NOTE | 2020-11-27 17:20 | EDM.PDOC ---
ED HPI GENERAL MEDICAL PROBLEM - General Chief Complaint: Neurological Problem Stated Complaint: EPISODE OF LOSS TIME Time Seen by Provider: 11/27/20 17:10 Source of Information: Reports: Patient, Old Records, RN History Limitations: Reports: No Limitations - History of Present Illness INITIAL COMMENTS - FREE TEXT/NARRATIVE: 65 yo female here after she either fell asleep and awoke, or had an absence type seizure. She does not know that she has had this type of seizure. She does relate that she reduced the doses of her seizure meds on her own since her last neurology appt. She did not have tongue biting or urinary incontinence. Thought her pulse ox was low at home and her heart was beating hard right after this spell, but everything has since resolved and she is feeling pretty much back to normal now. Onset: Today, Sudden Onset Date: 11/27/20 Duration: Minutes: Location: Reports: Generalized Quality: Reports: Other (no pain) Severity: Mild Improves with: Reports: Other (? time) Worsens with: Reports: Other (unknown) Context: Reports: Other (See HPI) Associated Symptoms: Reports: Shortness of Breath (transiet, resolved) Treatments DIRECTOR INDEPENDENT: Reports: Other (see below) (none) Bilateral Lower Leg Pain Score (Numeric/FACES): 3 - Related Data Allergies Allergy/AdvReac Type Severity Reaction Status Date / Time melatonin Allergy Unknown Tachycardia Verified 11/27/20 16:48 adhesive tape Allergy Rash Verified 11/27/20 16:48 hydromorphone [From Dilaudid] Allergy Itching Verified 11/27/20 16:48 oxycodone [From Tylox] Allergy Itching Verified 11/27/20 16:48 pregabalin [From Lyrica] Allergy Seizure Verified 11/27/20 16:48 pneumococcal vaccine AdvReac Unknown Nausea and Verified 11/27/20 16:48 [Pneumococcal Vaccine] Vomiting fentanyl AdvReac Itching Verified 11/27/20 16:48 hydromorphone HCl AdvReac Itching Verified 11/27/20 16:48 [From Dilaudid] Home Meds: Home Meds Budesonide/Formoterol [Symbicort 160-4.5 MCG] 2 puff INH BID PRN 07/15/13 [History] Hydrocortisone [Hydrocortisone 1% Crm] 1 lotion TOP BID PRN 07/15/13 [History] Vitamin B Complex [B Complex] 1 tab PO DAILY 07/15/13 [History] Nitroglycerin [Nitrostat] 0.4 mg SL ASDIRECTED PRN 01/12/14 [History] Metoprolol Tartrate [Lopressor] 25 mg PO BID 02/10/14 [History] polyethylene glycoL 3350 [MiraLAX] 1 dose PO [id number] PRN 09/15/14 [History] lamoTRIgine [Lamotrigine] 200 mg PO ACBREAKFAST 02/25/16 [History] Calcium Citrate/Vitamin D3 [Calcium Citrate +Vit D3 Tablet] 1 tab PO DAILY 04/29/16 [History] Cholecalciferol (Vitamin D3) [D3-2000] 10,000 units PO DAILY 04/29/16 [History] Cyanocobalamin/Folic Acid [B-12 1,000 Mcg Sub Tablet] 1 tab PO DAILY 04/29/16 [History] Multivitamin with Minerals [Multiple Vitamin] 1 tab PO DAILY 04/29/16 [History] atorvaSTATin [Lipitor] 40 mg PO DAILY 04/29/16 [History] Ibuprofen 400 mg PO ASDIRECTED 09/12/16 [History] Pramipexole Di-HCl [Mirapex] 1 mg PO QPM 09/12/16 [History] levETIRAcetam [Keppra] 750 mg PO BID 09/12/16 [History] PARoxetine [Paxil] 20 mg PO DAILY 10/05/16 [History] Albuterol [IJD: Ventolin HFA] 2 puff INH Q4HR PRN 06/27/17 [History] Naproxen 500 mg PO BID PRN 06/27/17 [History] tiZANidine [Zanaflex] 4 mg PO BEDTIME 06/27/17 [History] Acarbose 25 mg PO TID 10/23/18 [History] Acetaminophen/HYDROcodone [[place] 325-5 MG] 1 tab PO QID PRN 10/23/18 [History] Gabapentin [Neurontin] 600 mg PO BID 10/23/18 [History] Linaclotide [Linzess] 145 mg PO DAILY 10/23/18 [History] Liraglutide [Victoza] 0.6 mg PO DAILY 10/23/18 [History] Magnesium Oxide 400 mg PO DAILY 10/23/18 [History] Potassium Chloride 10 meq PO BID 10/23/18 [History] Torsemide [Demadex] 20 mg PO BID 10/23/18 [History] Pramipexole [Mirapex] 0.5 mg PO BEDTIME 02/05/19 [History] Past Medical History HEENT History: Reports: Allergic Rhinitis, Cataract, Impaired Vision, Otitis Media Cardiovascular History: Reports: Automatic Implantable Cardioverter Defibrillators, Blood Clots/VTE/DVT, Bypass, CAD, Heart Failure, Heart Murmur, [place], Pacemaker, Prior Cardiac Arrest, Stents Respiratory History: Reports: Asthma, Bronchitis, Recurrent, COPD, Sleep Apnea Gastrointestinal History: Reports: Bowel Obstruction, Chronic Constipation, Colon Polyp, GERD, Hemorrhoids, Hiatal Hernia Genitourinary History: Reports: UTI, 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: Musculoskeletal History: Reports: Arthritis, Back Pain, Chronic, Fracture, RA Other Musculoskeletal History: back surgery with paulette along spine Neurological History: Reports: CVA, Seizure Psychiatric History: Reports: Anxiety, Depression, Mood Swings Endocrine/Metabolic History: Reports: Obesity/BMI 30+, Osteopenia, Other (See Below) Other Endocrine/Metabolic History: hypoglycemia Hematologic History: Reports: B12 Deficiency, Blood Transfusion(s), Folic Acid Dermatologic History: Reports: Eczema - Infectious Disease History Infectious Disease History: Reports: Chicken Pox, Measles, Mumps - Past Surgical History HEENT Surgical History: Reports: Naso-Sinus Surgery, Tonsillectomy Cardiovascular Surgical History: Reports: Coronary Artery Bypass, Coronary Artery Stent, Pacer Respiratory Surgical History: Reports: None GI Surgical History: Reports: Appendectomy, Bariatric Procedure, Cholecystectomy, Colonoscopy, EGD, Gabriel Fundoplication, Small Bowel Female Surgical History: Reports: Section Endocrine Surgical History: Reports: None Neurological Surgical History: Reports: Lumbar Spine Musculoskeletal Surgical History: Reports: Carpal Tunnel, Other (See Below) Other Musculoskeletal Surgeries/Procedures:: Elbow surg Social & Family History - Tobacco Use Tobacco Use Status *Q: Current Every Day Tobacco User Years of Tobacco use: 48 Packs/Tins Daily: 0.5 - Caffeine Use Caffeine Use: Reports: Soda - Recreational Drug Use Recreational Drug Use: No ED ROS GENERAL - Review of Systems Review Of Systems: See Below Constitutional: Reports: No Symptoms HEENT: Reports: No Symptoms, Other (no tongue biting) Respiratory: Reports: Shortness of Breath (transient) Cardiovascular: Reports: Palpitations (transient) GI/Abdominal: Reports: No Symptoms : Reports: No Symptoms. Denies: Incontinence Musculoskeletal: Reports: No Symptoms Skin: Reports: No Symptoms Neurological: Reports: Other (transient amnesia, now resolved) ED EXAM, NEURO - Physical Exam Exam: See Below Exam Limited By: No Limitations General Appearance: Alert, WD/WN, No Apparent Distress Eye Exam: Bilateral Eye: Normal Inspection, PERRL Ears: Normal External Exam, Normal Canal, Hearing Grossly Normal, Normal TMs Nose: Normal Inspection, No Blood Throat/Mouth: Normal Inspection, Normal Lips, Normal Oropharynx, Normal Voice, No Airway Compromise Head Exam: Atraumatic, Normocephalic Neck: Normal Inspection Respiratory/Chest: No Respiratory Distress, Lungs Clear, Normal Breath Sounds, No Accessory Muscle Use Cardiovascular: Regular Rate, Rhythm, No Edema GI/Abdominal: Normal Bowel Sounds, Soft, Non-Tender, No Distention Neurological: Alert, Normal Mood/Affect, CN II-XII Intact, No Motor/Sensory Deficits, Oriented x 3 Back Exam: Normal Inspection. No: CVA Tenderness (R), CVA Tenderness (L) Extremities: Normal Inspection, Normal Range of Motion, Non-Tender, No Pedal Edema Psychiatric: Normal Affect, Normal Mood Skin Exam: Warm, Dry, Intact, Normal Color, No Rash Course - Vital Signs Last Recorded V/S: Last Vital Signs Temp 36.6 C 11/27/20 16:44 Pulse 74 11/27/20 17:22 Resp 17 11/27/20 17:22 BP 113/62 11/27/20 17:22 Pulse Ox 96 11/27/20 17:22 - Orders/Labs/Meds Orders: Active Orders 24 hr Category Date Time Status Cardiac Monitoring [RC] .As Directed Care 11/27/20 17:14 Active Departure - Departure Time of Disposition: 17:35 Disposition: Home, Self-Care 01 Condition: Good Clinical Impression: Transient amnesia - Discharge Information *PRESCRIPTION DRUG MONITORING PROGRAM REVIEWED*: No *COPY OF PRESCRIPTION DRUG MONITORING REPORT IN PATIENT CHIRAG: No Referrals: Rodo Jackson NP [Primary Care Provider] - Forms: ED Department Discharge Additional Instructions: Discuss today's event with your neurologist. Return if worse. Sepsis Event Note (ED) - Evaluation Sepsis Screening Result: No Definite Risk - Focused Exam Vital Signs: Vital Signs Temp Pulse Resp BP Pulse Ox 11/27/20 17:22 74 17 113/62 96 11/27/20 16:44 36.6 C 86 16 114/65 95 11/27/20 16:30 36.6 C 86 16 114/65 95 - My Orders Last 24 Hours: My Active Orders 11/27/20 17:14 Cardiac Monitoring [RC] .As Directed - Assessment/Plan Last 24 Hours: My Active Orders 11/27/20 17:14 Cardiac Monitoring [RC] .As Directed
[2020-11-27 17:23] VITALS: BP 113/62; PULSE 74
== END 2020-11-27 17:41 | disposition home or self-care (01) ==
LOC: JP.ED 16:09
DX: R41.3 Other amnesia (principal); I25.10 Atherosclerotic heart disease of native coronary artery without angina pectoris; J44.9 Chronic obstructive pulmonary disease, unspecified; M19.90 Unspecified osteoarthritis, unspecified site; R56.9 Unspecified convulsions; E66.9 Obesity, unspecified; Z68.24 Body mass index [BMI] 24.0-24.9, adult; Z91.048 Other nonmedicinal substance allergy status; Z88.5 Allergy status to narcotic agent; Z88.7 Allergy status to serum and vaccine; Z88.4 Allergy status to anesthetic agent; Z79.899 Other long term (current) drug therapy; Z79.82 Long term (current) use of aspirin; Z86.73 Personal history of transient ischemic attack (TIA), and cerebral infarction without residual deficits; Z95.1 Presence of aortocoronary bypass graft; I50.9 Heart failure, unspecified
CPT/HCPCS: 99283

== ENCOUNTER 2021-08-13 08:06 | Day surgery (SDC) | payer MEDICARE ==
[~2021-08-13 08:06] MED LIST changes: -Lidocaine 1% with EPINEPHrine 1:100,000 50 ML MDV ONE; -Sodium Chloride 0.9% 10 ML ONE; -Sodium Tetradecyl Sulfate 1% 20 MG/2 ML SDV ONE
[2021-08-13] MEDS ORDERED: Dextrose 5%-Lactated Ringers 1,000 ML IV SCH (08:30)
[2021-08-13 11:43] VITALS: BP 97/61; PULSE 59
--- NOTE | 2021-08-30 12:09 | OR ---
DATE OF PROCEDURE: 08/13/2021 SURGEON: Loki Meza MD PREOPERATIVE DIAGNOSIS: History of colon polyps. POSTOPERATIVE DIAGNOSIS: Normal colonoscopic examination. OPERATIVE PROCEDURE: Flexible colonoscopy. ANESTHESIA: IV sedation. INDICATION FOR PROCEDURE: This is a 66-year-old female presenting for followup screening colonoscopy. She does state in the past she has had colon polyps removed. Plan is to proceed with a colonoscopy with biopsies and/or polypectomy as indicated. Potential risks including bleeding and perforation were discussed and the patient wishes to proceed. DETAILS OF PROCEDURE: The patient was taken to the operating room and placed in a left lateral decubitus position. IV sedation was administered after which the initial digital rectal exam was performed which was unremarkable. Colonoscope was then passed into the rectum with retroflexion revealing uncomplicated hemorrhoidal columns. The scope was then passed to the level of the cecum. The prep was quite good, only a small amount of liquid stool present. To that level, there was no area of diverticula. No areas of colitis. No polyps or other signs of neoplasia. The scope was then withdrawn, the above findings reconfirmed, and the procedure then concluded. Based on the patient's stated history of colon polyps in the past, the next colonoscopy should be in 5 years. Loki Meza MD /[id number]
== END 2021-08-13 11:20 | disposition home or self-care (01) ==
LOC: JP.SDS 08:06
PROVIDERS: ATTEND Surgery
DX: Z12.11 Encounter for screening for malignant neoplasm of colon (principal); K64.9 Unspecified hemorrhoids; G47.33 Obstructive sleep apnea (adult) (pediatric); J44.9 Chronic obstructive pulmonary disease, unspecified; K21.9 Gastro-esophageal reflux disease without esophagitis; I25.10 Atherosclerotic heart disease of native coronary artery without angina pectoris; I50.9 Heart failure, unspecified; Z86.010 Personal history of colon polyps
CPT/HCPCS: J2250; J2704; J3010; J7121

== ENCOUNTER 2021-09-18 13:21 | Emergency (ER) | payer MEDICARE ==
[2021-09-18 13:53] VITALS: BP 140/78; PULSE 82
[2021-09-18] MEDS: Morphine 2 MG/ML SYRINGE IVPUSH ONE (14:29)
[2021-09-18] MEDS: Iopamidol 612 MG/ML 100 ML Bottle IV ONE (15:03)
[2021-09-18] MEDS: Sodium Chloride 0.9% 75 ML IV SCH (15:03)
[2021-09-18] MEDS: Clindamycin Phosphate 900 MG in Sodium Chloride 0.9% 100 ML IV ONE (15:17)
[2021-09-18] MEDS: Lactated Ringers 1,000 ML IV SCH (15:17)
== END 2021-09-18 16:05 | disposition home or self-care (01) ==
LOC: JP.ED 13:21
DX: L03.211 Cellulitis of face (principal); M27.2 Inflammatory conditions of jaws; I25.10 Atherosclerotic heart disease of native coronary artery without angina pectoris; I25.2 Old myocardial infarction; J44.9 Chronic obstructive pulmonary disease, unspecified; K21.9 Gastro-esophageal reflux disease without esophagitis; Z86.73 Personal history of transient ischemic attack (TIA), and cerebral infarction without residual deficits; Z95.0 Presence of cardiac pacemaker; Z91.048 Other nonmedicinal substance allergy status; Z88.5 Allergy status to narcotic agent; Z88.8 Allergy status to other drugs, medicaments and biological substances; Z88.7 Allergy status to serum and vaccine; Z79.899 Other long term (current) drug therapy; Z72.0 Tobacco use
CPT/HCPCS: 36415; 70491; 80048; 85025; 86140; 96365; 96375; 99284; 99284-25; J2270; J3490; J7120; Q9967

== ENCOUNTER 2021-09-20 14:11 | Emergency (ER) | payer MEDICARE ==
[2021-09-20 14:52] VITALS: BP 96/72; PULSE 73
[2021-09-20] MEDS ORDERED: Amoxicillin/Clavulanate K 875-125 MG Tab PO ONE (16:18)
== END 2021-09-20 16:54 | disposition home or self-care (01) ==
LOC: JP.ED 14:11
DX: L03.211 Cellulitis of face (principal); K04.7 Periapical abscess without sinus; Z88.8 Allergy status to other drugs, medicaments and biological substances; Z91.048 Other nonmedicinal substance allergy status; Z88.5 Allergy status to narcotic agent; Z79.899 Other long term (current) drug therapy; Z88.7 Allergy status to serum and vaccine; Z86.73 Personal history of transient ischemic attack (TIA), and cerebral infarction without residual deficits; Z72.0 Tobacco use
CPT/HCPCS: 36415; 76536; 85025; 86140; 99284; A9270

== ENCOUNTER 2021-12-28 17:51 | Emergency (ER) | payer MEDICARE ==
[2021-12-28] MEDS ORDERED: Sodium Chloride 0.9% 10 ML Syringe FLUSH PRN (18:00)
[2021-12-28 18:38] LABS: TROPONIN I HIGH SENSITIVITY 7.4 pg/mL (<=60.3)
[2021-12-28 20:04] VITALS: BP 126/72; PULSE 76
== END 2021-12-28 20:23 | disposition home or self-care (01) ==
LOC: JP.ED 17:51
DX: G40.909 Epilepsy, unspecified, not intractable, without status epilepticus (principal); E11.9 Type 2 diabetes mellitus without complications; I50.9 Heart failure, unspecified; J44.9 Chronic obstructive pulmonary disease, unspecified; K21.9 Gastro-esophageal reflux disease without esophagitis; Z79.899 Other long term (current) drug therapy
CPT/HCPCS: 36415; 70450; 80053; 84484; 85025; 93005; 93010; 99282; 99285-25; J3490

== ENCOUNTER 2022-10-28 09:55 | Emergency (ER) | payer MEDICARE ==
[2022-10-28 10:13] VITALS: BP 108/45; PULSE 66
[2022-10-28] MEDS ORDERED: fentaNYL 100 MCG/2 ML SDV IM ONE (10:47)
[2022-10-28] MEDS ORDERED: diphenhydrAMINE 25 MG Cap PO ONE (10:48)
== END 2022-10-28 12:20 | disposition home or self-care (01) ==
LOC: JP.ED 09:55
DX: M25.552 Pain in left hip (principal); I25.10 Atherosclerotic heart disease of native coronary artery without angina pectoris; I25.2 Old myocardial infarction; I50.9 Heart failure, unspecified; J44.9 Chronic obstructive pulmonary disease, unspecified; M19.90 Unspecified osteoarthritis, unspecified site; G40.909 Epilepsy, unspecified, not intractable, without status epilepticus; Z72.0 Tobacco use; Z88.8 Allergy status to other drugs, medicaments and biological substances; Z91.048 Other nonmedicinal substance allergy status; Z88.5 Allergy status to narcotic agent; Z88.6 Allergy status to analgesic agent; Z88.7 Allergy status to serum and vaccine; Z79.899 Other long term (current) drug therapy
CPT/HCPCS: 73502; 96372; 99283; A9270; J3010